=== PATIENT | female | born 1935 | race Caucasian/White ===

== ENCOUNTER 2016-06-28 13:50 | Outpatient (CLI) | payer MEDICARE ==
[2016-06-28 14:21] LABS: Anion Gap 15 mmol/L (10-20); BUN (Urea Nitrogen) 16 mg/dL (9.8-20.1); Calc. Creatinine Clearance 0 mL/min (70-130); Calcium 9.1 mg/dL (7.8-10.44); Carbon Dioxide 20 mmol/L (23-31); Chloride 103 mmol/L (98-107); Estimated GFR-MDRD 43; Glucose 127 mg/dL (83-110); Sodium 133 mmol/L (136-145)
== END 2016-06-28 13:51 | disposition home or self-care (01) ==
LOC: MADLAB 13:50
PROVIDERS: ATTEND Internal Medicine Cardiovascular Disease
DX: I42.1 Obstructive hypertrophic cardiomyopathy (principal); R06.02 Shortness of breath
CPT/HCPCS: 36415; 80048

== ENCOUNTER 2019-12-30 14:53 | Emergency (ER) | payer MEDICARE ==
--- NOTE | 2019-12-30 15:35 | RAD ---
XR Chest 1 View Portable HISTORY: Chest pain COMPARISON: 06/01/2017 FINDINGS: The heart size is enlarged. 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 The aorta is tort uous. There is continued elevation the right hemidiaphragm. No lobar consolidation, pneumothoraces, shemar pulmonary edema or pleural effusions are seen. Postop changes of right rotator cuff repair agai n noted. IMPRESSION: No radiographic evidence of acute cardiopulmonary process.
[2019-12-30] MEDS ORDERED: Aspirin Chewable 81 MG TAB ONE (15:41)
[2019-12-30 16:31] LABS: #Basophils 0.1 thou/uL (0.0-0.2); #Eosinphils 0.1 thou/uL (0.0-0.7); #Monocytes 0.5 thou/uL (0.11-0.59); #Neutrophils 2.9 thou/uL (1.40-6.50); %Basophils 1.1 % (0.0-1.0); %Eosinophils 2.9 % (0.0-10.0); %Lymphocytes 22.7 % (21.0-51.0); %Monocytes 10.8 % (0.0-10.0); %Neutrophils 62.4 % (42.0-75.0); Hemoglobin 10.3 g/dL (12.0-16.0); Mean Corpuscular HGB CONC 31.4 g/dL (32.0-36.0); Mean Corpuscular Hemoglobin 28.7 pg (27.0-31.0); Mean Corpuscular Volume 91.3 fL (78.0-98.0); Mean Platelet Volume 7.1 fL (7.4-10.4); Platelet Count 141 thou/uL (130-400); RBC Distribution Width 14.1 % (11.5-14.5); Red Blood Cell (RBC) Count 3.58 mill/uL (4.20-5.40); White Blood Cell (WBC) Count 4.6 thou/uL (4.8-10.8)
[2019-12-30 16:45] LABS: ALT (SGPT) 15 U/L (8-55); AST (SGOT) 21 U/L (5-34); Alkaline Phosphatase 93 U/L (40-110); Anion Gap 18 mmol/L (10-20); BUN (Urea Nitrogen) 76 mg/dL (9.8-20.1); Bilirubin, Total 0.5 mg/dL (0.2-1.2); CK (CPK) 38 U/L (29-168); Calc. Creatinine Clearance 0 mL/min (70-130); Calcium 9.7 mg/dL (7.8-10.44); Carbon Dioxide 29 mmol/L (23-31); Chloride 94 mmol/L (98-107); Estimated GFR-MDRD 19; Globulin 3.5 g/dL (2.4-3.5); Glucose 114 mg/dL (83-110); Protein, Total 7.5 g/dL (6.0-8.3); Sodium 138 mmol/L (136-145)
[2019-12-30 16:51] LABS: Potassium 2.7 mmol/L (3.5-5.1)
[2019-12-30] MEDS ORDERED: Potassium Chloride 20 MEQ TAB ONE (17:29)
[2019-12-30] MEDS ORDERED: Sodium Chloride 0.9% 1,000 ML ONE (17:59)
[2019-12-30] MEDS ORDERED: Morphine 2 MG/ML SYRINGE ONE (18:16)
== END 2019-12-30 18:46 | disposition short-term general hospital (02) ==
LOC: MADERS 14:53
DX: I21.4 Non-ST elevation (NSTEMI) myocardial infarction (principal); N17.9 Acute kidney failure, unspecified; E87.6 Hypokalemia; I10 Essential (primary) hypertension; I42.2 Other hypertrophic cardiomyopathy; I48.91 Unspecified atrial fibrillation; Z87.442 Personal history of urinary calculi; Z86.718 Personal history of other venous thrombosis and embolism; Z79.01 Long term (current) use of anticoagulants; Z79.82 Long term (current) use of aspirin; Z79.899 Other long term (current) drug therapy
CPT/HCPCS: 36415; 71045; 80053; 82550; 82553; 83880; 84484; 85025; 85379; 93005; 94760; 96361; 96374; J2270; J7050